=== PATIENT | male | born 1950 | race Caucasian/White ===

== ENCOUNTER 2017-06-07 16:17 | Inpatient (IN) ==
[2017-06-07] MEDS ORDERED: 0.9 % Sodium Chloride 1,000 ML IVC ONE ×2 (16:30→21:04)
--- NOTE | 2017-06-07 16:35 | Emergency Department Note ---
Disposition Clinical Impression: Hyponatremia Fever Qualifiers: Fever type: unspecified Qualified Code(s): R50.9 - Fever, unspecified Disposition: Admitted As Inpatient Condition: Good Referrals: Ben Magaña MD [Primary Care Provider] - Forms: ED Satisfaction Letter, Work/School Release Time of Disposition: 17:57 General Adult HPI - General Chief complaint: ED General Medical Stated complaint: sent from PCP" Time Seen by Provider: 06/07/17 16:20 Source: patient, family Mode of arrival: EMS Limitations: other (MRDD) Nursing Notes Reviewed: Yes Vital Signs Reviewed: Yes - History of Present Illness HPI Narrative: 66-year-old male with MRDD presenting to the emergency department sent from his primary care physician. History is limited due to patient's MRDD. Patient was sent to urgent care last week and was told he had a viral syndrome was treated with nausea medications. Patient has not been getting any better and now had a fever of 102 today and therefore was seen in his primary care physician's office. Upon arrival to the primary care physician's office patient was noted to be weak unsteady on his feet and have a fever 102. Physician was concerned for this and his disorientation and therefore sent to the emergency department. Patient denies any complaints at this time. Patient stable in the room but unable to answer majority of the questions. Patient continues to state he does not want to stay here. [id number] in the room providing history as well. - Related Data Home Medications Medication Instructions Recorded Confirmed Aspirin 06/04/17 06/04/17 Carbamazepine 06/04/17 Folic Acid 06/04/17 Risperidone 06/04/17 Simvastatin 06/04/17 metFORMIN 06/04/17 Previous Rx's Medication Instructions Recorded Ondansetron ODT [Zofran ODT] 4 mg SL Q6HR PRN #10 tab.rapdis 06/04/17 Allergies Allergy/AdvReac Type Severity Reaction Status Date / Time No Known Allergies Allergy Verified 06/04/17 10:58 Limitations: ROS unobtainable due to patients medical condition (seconday to MRDD) Past Medical History - Past Medical History Attestation: Yes The following information was validated with the patient. Medical history: Reports: diabetes, hyperlipidemia - Social History Smoking Status: Never smoker Smokeless Tobacco Status: No Alcohol use: Reports: none Physical Exam - General Limitations: other (MRDD) General appearance: alert, in no apparent distress - Head Head exam: atraumatic, normocephalic - Eye Eye exam: Present: normal appearance. Absent: scleral icterus, conjunctival injection - ENT ENT exam: mucous membranes dry - Neck Neck exam: Present: normal inspection, full ROM - Chest Chest inspection: Present: normal inspection, symmetric chest wall rise. Absent : tenderness - Respiratory Respiratory exam: Present: normal lung sounds bilaterally. Absent: respiratory distress, wheezes - Cardiovascular Cardiovascular exam: Present: regular rate, normal rhythm, normal heart sounds - Abdominal Exam Abdominal exam: Present: soft, Non-Tender. Absent: distention, guarding, rebound - Extremities Exam Extremities exam: Present: normal inspection, full ROM - Neurological Exam Neurological exam: Present: alert - Skin Skin exam: Present: warm, intact Course Course Narrative: 66-year-old male presenting to the emergency department with chief complaint of fever of 102 and disorientation. According to [id number]-[id number] he has been sick for approximately 1 week and has not been getting better. Patient history difficult to obtain due to MRDD. At this time we will perform a sepsis workup to rule out any source of infection. Patient hemodynamically stable in the room at this time in no acute distress. - Reevaluation(s) Reevaluation #1: No obvious source of infection at this time. Patient sodium 127. Decided to admit the patient. Lashawn Phillips excepts the patient. She asks to add a flu swab for the patient. Time: 17:57 Medical Decision Making - Medical Records Medical records reviewed: Yes I reviewed the patient's medical records. - Lab Data Lab results reviewed: Yes I reviewed the patient's lab results. Result diagrams: 06/07/17 17:01 06/07/17 17:01 Lab Results 06/07/17 06/07/17 06/07/17 Range/Units 16:43 17:01 17:01 WBC 7.2 (4.3-11.1) K/mcL RBC 4.03 L (4.19-5.50) M/mcL Hgb 13.9 (12.9-16.9) g/dL Hct 39.2 (37.5-50.1) % MCV 97.3 (83.0-100.0) fL MCH 34.5 H (28.0-33.3) pg MCHC 35.5 (31.6-35.5) g/dL RDW 12.1 (11.5-14.5) % Plt Count 280 (140-400) K/mcL MPV 8.9 L (9.4-12.4) fL Immature Gran % 0.3 (0-4) % Seg Neutrophils % 84.8 % Lymphocytes % 6.4 % Monocytes % 8.3 % Eosinophils % 0.1 % Basophils % 0.1 % Neutrophils # 6.1 (1.6-8.9) K/mcL Lymphocytes # 0.5 L (0.6-4.6) K/mcL Monocytes # 0.6 (0.0-1.3) K/mcL Eosinophils # 0.0 (0.0-0.6) K/mcL Basophils # 0.0 (0.0-0.2) K/mcL Sodium 127 L (136-145) mEq/L Potassium 3.8 (3.5-4.5) mEq/L Chloride 91 L (98-109) mEq/L Carbon Dioxide 24 (19-29) mEq/L BUN 11 (8-26) mg/dL Creatinine 0.87 (0.72-1.25) mg/dL Est GFR ( Amer) > 60 (> 60) Est GFR (Non-Af Amer) > 60 (> 60) BUN/Creatinine Ratio 13 (6-26) Glucose 171 H (70-99) mg/dL Calculated Osmolality 267 L (280-300) Lactic Acid (0.5-2.2) mmol/L Calcium 9.0 (8.6-10.8) mg/dL Phosphorus 2.7 (2.3-4.7) mg/dL Magnesium 1.5 L (1.6-2.6) mg/dL Total Bilirubin 0.6 (0.2-1.2) mg/dL Direct Bilirubin 0.3 (0.0-0.5) mg/dL Indirect Bilirubin 0.3 (0.0-1.2) mg/dL AST 10 (5-34) Units/L ALT 7 (0-55) Units/L Alkaline Phosphatase 83 (38-126) Units/L Troponin I (0-0.03) ng/mL Serum Total Protein 7.1 (6.0-8.3) g/dL Albumin 3.1 L (3.5-5.0) g/dL Globulin 4.0 H (2.4-3.5) g/dL Albumin/Globulin Ratio 0.8 L (1.1-2.2) Urine Color Dark Yellow (Yellow) Urine Clarity Cloudy A (Clear) Urine pH 6.0 (5.0-8.0) pH Units Ur Specific [place] 1.018 (1.010-1.025) Urine Protein Trace (Neg-Trace) mg/dL Urine Glucose (UA) 250 H (Normal) mg/dL Urine Ketones Negative (Negative) mg/dL Urine Blood Negative (Negative) Urine Nitrite Negative (Negative) Urine Bilirubin Small H (Negative) Urine Urobilinogen 4.0 H (Normal) mg/dL Ur Leukocyte Esterase Negative (Negative) Urine Microscopic RBC 0-3 (0-3) per hpf Urine Microscopic WBC 0-3 (0-3) per hpf Ur Squamous Epith Cells Few (None-Few) per lpf Calcium Oxalate Crystal Present Urine Bacteria Few (None-Few) per hpf Hyaline Casts None Seen (None-Few) per lpf Ur Culture Indicated? NO (NO) 06/07/17 06/07/17 Range/Units 17:01 17:01 WBC (4.3-11.1) K/mcL RBC (4.19-5.50) M/mcL Hgb (12.9-16.9) g/dL Hct (37.5-50.1) % MCV (83.0-100.0) fL MCH (28.0-33.3) pg MCHC (31.6-35.5) g/dL RDW (11.5-14.5) % Plt Count (140-400) K/mcL MPV (9.4-12.4) fL Immature Gran % (0-4) % Seg Neutrophils % % Lymphocytes % % Monocytes % % Eosinophils % % Basophils % % Neutrophils # (1.6-8.9) K/mcL Lymphocytes # (0.6-4.6) K/mcL Monocytes # (0.0-1.3) K/mcL Eosinophils # (0.0-0.6) K/mcL Basophils # (0.0-0.2) K/mcL Sodium (136-145) mEq/L Potassium (3.5-4.5) mEq/L Chloride (98-109) mEq/L Carbon Dioxide (19-29) mEq/L BUN (8-26) mg/dL Creatinine (0.72-1.25) mg/dL Est GFR ( Amer) (> 60) Est GFR (Non-Af Amer) (> 60) BUN/Creatinine Ratio (6-26) Glucose (70-99) mg/dL Calculated Osmolality (280-300) Lactic Acid 2.6 H (0.5-2.2) mmol/L Calcium (8.6-10.8) mg/dL Phosphorus (2.3-4.7) mg/dL Magnesium (1.6-2.6) mg/dL Total Bilirubin (0.2-1.2) mg/dL Direct Bilirubin (0.0-0.5) mg/dL Indirect Bilirubin (0.0-1.2) mg/dL AST (5-34) Units/L ALT (0-55) Units/L Alkaline Phosphatase (38-126) Units/L Troponin I 0.01 (0-0.03) ng/mL Serum Total Protein (6.0-8.3) g/dL Albumin (3.5-5.0) g/dL Globulin (2.4-3.5) g/dL Albumin/Globulin Ratio (1.1-2.2) Urine Color (Yellow) Urine Clarity (Clear) Urine pH (5.0-8.0) pH Units Ur Specific [place] (1.010-1.025) Urine Protein (Neg-Trace) mg/dL Urine Glucose (UA) (Normal) mg/dL Urine Ketones (Negative) mg/dL Urine Blood (Negative) Urine Nitrite (Negative) Urine Bilirubin (Negative) Urine Urobilinogen (Normal) mg/dL Ur Leukocyte Esterase (Negative) Urine Microscopic RBC (0-3) per hpf Urine Microscopic WBC (0-3) per hpf Ur Squamous Epith Cells (None-Few) per lpf Calcium Oxalate Crystal Urine Bacteria (None-Few) per hpf Hyaline Casts (None-Few) per lpf Ur Culture Indicated? (NO) - Radiology Data Radiology results reviewed: Yes I reviewed the patient's radiology results. - EKG Data EKG #1 EKG attestation: Yes I reviewed and interpreted this EKG. EKG results narrative: 85 bpm. Sinus rhythm. Left axis deviation. DC interval 157, QRS 102, QTC 390. T-wave inversion noted in V1 and V2. No ST segment elevation noted.
[2017-06-07 16:52] LABS: Bilirubin,Urine Small (Negative); Blood,Urine Negative (Negative); Clarity,Urine Cloudy (Clear); Color,Urine Dark Yellow (Yellow); Glucose,Urine (UA) 250 mg/dL (Normal); Ketones,Urine Negative (Negative); Leukocyte Esterase,Urine Negative (Negative); Nitrite,Urine Negative (Negative); Protein,Urine Trace mg/dL (Neg-Trace); Specific Gravity,Urine 1.018 (1.010-1.025)
[2017-06-07 16:53] LABS: Hyaline Casts,Urine None Seen per lpf (None-Few); RBC,Urine 0-3 per hpf (0-3); WBC,Urine 0-3 per hpf (0-3)
[2017-06-07 17:05] LABS: Squamous Epithelial Cell,Urine Few per lpf (None-Few)
[2017-06-07 17:06] LABS: Bacteria,Urine Few per hpf (None-Few); Calcium Oxalate Crystals,Urine Present
[2017-06-07 17:07] LABS: Basophils % 0.1 %; Eosinophils % 0.1 %; Hematocrit 39.2 % (37.5-50.1); Hemoglobin 13.9 g/dL (12.9-16.9); Immature Granulocytes % 0.3 % (0-4); Lymphocytes # 0.5 K/mcL (0.6-4.6); Lymphocytes % 6.4 %; Mean Corpuscular HGB Conc 35.5 g/dL (31.6-35.5); Mean Corpuscular Hemoglobin 34.5 pg (28.0-33.3); Mean Corpuscular Volume 97.3 fL (83.0-100.0); Mean Platelet Volume 8.9 fL (9.4-12.4); Monocytes # 0.6 K/mcL (0.0-1.3); Monocytes % 8.3 %; Neutrophils # 6.1 K/mcL (1.6-8.9); Platelet Count 280 K/mcL (140-400); Red Blood Count 4.03 M/mcL (4.19-5.50); Red Cell Distribution Width 12.1 % (11.5-14.5); Segmented Neutrophils % 84.8 %
[2017-06-07 17:25] LABS: Alanine Aminotransferase 7 Units/L (0-55); Albumin 3.1 g/dL (3.5-5.0); Albumin/Globulin Ratio 0.8 (1.1-2.2); Alkaline Phosphatase 83 Units/L (38-126); Aspartate Amino Transferase 10 Units/L (5-34); BUN/Creatinine Ratio 13 (6-26); Bilirubin,Direct 0.3 mg/dL (0.0-0.5); Bilirubin,Indirect 0.3 mg/dL (0.0-1.2); Bilirubin,Total 0.6 mg/dL (0.2-1.2); Blood Urea Nitrogen 11 mg/dL (8-26); Carbon Dioxide 24 mEq/L (19-29); Chloride 91 mEq/L (98-109); Glucose 171 mg/dL (70-99); Magnesium 1.5 mg/dL (1.6-2.6); Osmolality,Calculated 267 (280-300); Phosphorous 2.7 mg/dL (2.3-4.7); Potassium 3.8 mEq/L (3.5-4.5); Sodium 127 mEq/L (136-145); Total Protein 7.1 g/dL (6.0-8.3); eGFR For African Americans > 60 (> 60); eGFR For Non-African Americans > 60 (> 60)
--- NOTE | 2017-06-07 17:48 | Emergency Department Note ---
START Narrative - START START: I examined this patient and my medical decision-making was reviewed with the Resident Physician. I agree with the documented findings, disposition and treatment plan as described except to the extent set forth below. 66-year-old male presents to the emergency room with his [id number]-[id number] for reports of a fever and not feeling well 1 week. They noticed a fever today at the doctor's office of 102. When he was in the ER here he did not have a fever and they did not give him any antipyretics. Patient is a poor historian secondary to MR INDER. No focal complaints per the [id number]. She states he is just seems more weak than normal. Workup thus far in the ER shows a low sodium. Slightly elevated lactate. Chest x-ray normal. Urinalysis normal. We will admit for the low sodium of 127. This could be the cause of his weakness. Started with some gentle normal saline fluids. Patient will need to be admitted for observation.
[2017-06-07] MEDS ORDERED: *HR* Dextrose 50 % in Water (Syg) 50 ML SYRINGE IVP PRN (21:14)
[2017-06-07] MEDS ORDERED: Dextrose Gel 15 GM PO PRN ×2 (21:14)
[2017-06-07] MEDS ORDERED: D5% in Water 1,000 ML IVC PRN (21:14)
[2017-06-07] MEDS ORDERED: Naloxone 0.4 MG/ML INJ IVP PRN (21:24)
[2017-06-07] MEDS ORDERED: Acetaminophen 325 MG TABLET PO PRN (21:24)
[2017-06-07] MEDS ORDERED: Ondansetron 4 MG/2 ML VIAL IVP PRN (21:24)
[2017-06-07] MEDS ORDERED: Magnesium Sulfate 2 GM in D5% in Water 100 ML IVPB ONE (21:27)
--- NOTE | 2017-06-07 21:28 | Internal Med History&Physical ---
Date of Encounter: 06/07/17 Time of Encounter: 21:28 Assessment and Plan (1) Sepsis Current visit: Yes Status: Suspected 1 appears to be septic he is hypotensive with elevated temp hypoxic with sats 90 % on RA and elevated lactate. Source unclear suspect possible possible aspiration pneumonina, We will also check influenza swab 2 continue to monitor lactate 3 blood culture obtained 4 has received 1 l bolus in Ed will give one more if continue to be hypotensive we will give albumin 5 aspiration precautions- bedside swallow evaluation 6 initiate zosyn Qualifiers: Sepsis type: sepsis due to unspecified organism Qualified Code(s): A41.9 - Sepsis, unspecified organism (2) Hyponatremia Current visit: Yes Status: Acute 1 sodium was 127 presently he is neurologically at baseline no seizure activity noted. Serum osmolarity is 267 we will check urine Na urine osmo for source of hyponatremia . He was given 1 L of 0.9 normal saline in the ER he is presently hypotensive we will give liter of 0.9 normal saline. Recheck sodium every 6 hours, will not correct sodium no more than 8 meq per day 2 seizure precautions 3 monitor intake and output daily weights (3) Diabetes Current visit: No Status: Chronic accu check AC/HS SSI insulin Qualifiers: Diabetes mellitus type: type 2 Diabetes mellitus complication status: without complication Diabetes mellitus senior care insulin use: without ssds mk 2 advanced operator use Qualified Code(s): E11.9 - Type 2 diabetes mellitus without complications (4) DVT prophylaxis Current visit: Yes Status: Acute lovenox (5) Hx of seizure disorder Current visit: Yes Status: Acute family states that patient has not had a seizure in many years, recently had tegretol decreased. will continue with home medication continue seizure precautions Internal Medicine - H&P: HPI Chief complaint: fever Admitted From: Emergency Dept Plans for Post Hospital Care: Home History of present illness: Mr. Pitts is a 66 year old male past uncle history of MRDD hyperlipidemia diabetes. Information obtained from medical records as well as family who is at bedside due to patient's cognitive state. According to the family the patient has been experiencing increasing lethargy and nausea one episode of emesis, headache and poor oral intake for about 5 days. Sunday they did take the patient to urgent care he was treated for viral illness and was advised to follow-up with PCP if symptoms continued. Today patient was secondary to BCP due to continuation of symptoms as well as a fever of 102. Advised to go to the ER for evaluation. In the ER lab work did reveal hyponatremia with a sodium of 127 low magnesium at 1.5 lactate was 2.6 he was hypotensive and was given a fluid challenge. Urinalysis was negative for any UTI chest x-ray No convincing evidence of edema or pneumonia. Mild interstitial scarring or atelectasis. Blood cultures were obtained patient has been admitted for further work up evaluation. Aniket patient is alert he is at his mental baseline. Mucous membranes do appear to be tachycardia his lung sounds are clear heart sounds are regular S1-S2 abdomen soft and nontender to palpation no pedal edema. Family member states medications have all been a same except they did decrease his Tegretol down to 300 as well as placed him on folic acid. He continued to be somewhat hypotensive. I reviewed this case with Dr. Stoner who agrees with plan. Past Med Surg Social Fam HX - Past Medical History Medical history: diabetes, hyperlipidemia Psychiatric history: anxiety - Social History Smoking Status: Never smoker Smokeless Tobacco Status: No Alcohol use: none Drug use: none - Family History Mother Living Status: Hx Family Cardiac Disorders: Yes Internal Medicine - H&P: Meds Aspirin Enteric Coated [Aspirin EC] 81 mg PO DAILY 06/04/17 [History] CarBAMazepine [Carbamazepine ER] 300 mg PO DAILY 06/04/17 [History] Folic Acid 1 mg PO DAILY 06/04/17 [History] Simvastatin [Zocor] 10 mg PO HS 06/04/17 [History] metFORMIN [Glucophage] 500 mg PO BIDWM 06/04/17 [History] risperiDONE [Risperdal] 2 mg PO HS 06/04/17 [History] 3 Allergy/AdvReac Type Severity Reaction Status Date / Time No Known Allergies Allergy Verified 06/04/17 10:58 ROS unobtainable: due to mental status All Systems PM: A 10-system review of systems was performed and is negative for pertinent findings except as documented above in the HPI. - Constitutional Vitals: Temp Pulse Resp BP Pulse Ox 100.5 F H 81 14 95/63 92 06/07/17 20:41 06/07/17 20:41 06/07/17 20:41 06/07/17 20:41 06/07/17 20:41 General appearance: Present: A&O X 1, pleasant - Head Head exam: Present: atraumatic, normocephalic - Eye Eye exam: Present: PERRL, conjuntiva pink, sclera anicteric Pupils: Present: PERRL - Neck Neck exam general surgery: Present: supple, trachea midline. Absent: lymphadenopathy - Respiratory Respiratory exam: Present: CTAB. Absent: accessory muscle use, rales, rhonchi, wheezes - Cardiovascular Cardiovascular exam: Present: RRR, +S1, +S2. Absent: diastolic murmur, gallop, rubs, systolic murmur - GI/Abdominal GI/Abdominal exam: Present: normal bowel sounds, soft, no peritoneal signs. Absent: distended, tenderness - Extremities Exam Extremities exam: Present: warm, radial pulses palpable and symmetrical. Absent : calf tenderness, cyanotic, pedal edema - Neurological Exam Neurological exam: Present: CN II-XII intact, oriented X3, no focal deficits. Absent: pronater drift, facial droop, speech deficit - Skin Skin exam: Present: dry, intact Internal Med - H&P Results - Labs CBC & Chem 7: 06/07/17 17:01 06/07/17 17:01 - Diagnostic Studies Other Images Additional comments: Chest X-Ray 06/07/17 16:44 IMPRESSION: No convincing evidence of edema or pneumonia. Mild interstitial scarring or atelectasis. D/ / 06/07/2017 17:31:40 Johnny Pena MD / [facility] Interpreting Provider: Johnny Pena MD
--- NOTE | 2017-06-07 21:51 | Event Note ---
Date of Encounter: 06/07/17 Time of Encounter: 21:48 Patient and examined withpractitioner. Agree with this assessment and plan. Suspects sepsis source unclear possibly pneumonia. He is hypoxic saturating 90 to 92% on room air. We will start the patient on Zosyn. Lactic acids 2.5. Blood pressure is borderline students systolic running in the 90s. He had received 1 L bolus in the emergency room will give one more liter of normal saline over an hour. Continue maintenance fluid after checking sodium level as he is hyponatremic. Will plan to correct the sodium no faster than .5 mEq per hour or 6 to 8 mEq per day. We will get urine sodium and osmolarity to check cause for hyponatremia. Inpatient admission.
[2017-06-07] MEDS ORDERED: Levofloxacin 750 MG/150 ML 750 MG/150 ML BAG IVPB SCH (22:00)
[2017-06-08] MEDS: Piperacillin/Tazobactam 3.375 GM in D5% in Water (Mini-Bag+) 100 ML IVPB SCH ×2 (00:04→07:53)
[2017-06-08 05:12] LABS: Basophils % 0.5 %; Eosinophils # 0.1 K/mcL (0.0-0.6); Eosinophils % 1.1 %; Hematocrit 32.2 % (37.5-50.1); Immature Granulocytes % 0.2 % (0-4); Lymphocytes # 0.9 K/mcL (0.6-4.6); Lymphocytes % 16.4 %; Mean Corpuscular Volume 97.3 fL (83.0-100.0); Mean Platelet Volume 8.8 fL (9.4-12.4); Monocytes # 0.6 K/mcL (0.0-1.3); Monocytes % 10.3 %; Platelet Count 217 K/mcL (140-400); Red Blood Count 3.31 M/mcL (4.19-5.50); Red Cell Distribution Width 12.2 % (11.5-14.5); Segmented Neutrophils % 71.5 %
[2017-06-08 05:15] LABS: Hemoglobin 11.6 g/dL (12.9-16.9)
[2017-06-08 05:25] LABS: BUN/Creatinine Ratio 8 (6-26); Blood Urea Nitrogen 6 mg/dL (8-26); Calcium 8.5 mg/dL (8.6-10.8); Carbon Dioxide 25 mEq/L (19-29); Chloride 96 mEq/L (98-109); Glucose 109 mg/dL (70-99); Magnesium 1.9 mg/dL (1.6-2.6); Osmolality,Calculated 264 (280-300); Potassium 3.8 mEq/L (3.5-4.5); Sodium 128 mEq/L (136-145); eGFR For African Americans > 60 (> 60); eGFR For Non-African Americans > 60 (> 60)
[2017-06-08] MEDS: *HR* Enoxaparin 40 MG/0.4 ML SYRINGE SQ SCH (06:03)
[2017-06-08] MEDS: Insulin LISPRO 300 UNITS/3 ML VIAL SQ SCH ×4 (07:45→21:07)
[2017-06-08] MEDS: Folic Acid 1 MG TABLET PO SCH (07:53)
[2017-06-08] MEDS: Aspirin Enteric Coated 81 MG Tablet PO SCH (07:53)
[2017-06-08] MEDS ORDERED: CarBAMazepine 100 MG TABLET PO SCH (09:00)
[2017-06-08] MEDS: 0.9 % Sodium Chloride 1,000 ML IVC SCH (12:20)
--- NOTE | 2017-06-08 17:17 | Internal Med Progress Note ---
Date of Encounter: 06/08/17 Time of Encounter: 10:00 - Assessment and plan (1) Hyponatremia Current Visit: Yes Status: Acute Assessment and plan: -Suspect patient hypovolemic hypotonic hyponatremia as patient has low serum osmolarity and family reports the patient has not been taking lots of fluids -Suspect that hyponatremia also secondary to Tegretol. -Will continue gentle IV normal saline to actually increase serum sodium. -Continue to monitor serum sodium levels. (2) Fever Current Visit: Yes Status: Resolved Assessment and plan: Patient has been afebrile and without leukocytosis. -IV antibiotics have been discontinued. Qualifiers: Fever type: unspecified Qualified Code(s): R50.9 - Fever, unspecified (3) Diabetes Current Visit: No Status: Chronic Assessment and plan: Continue home medications Qualifiers: Diabetes mellitus type: type 2 Diabetes mellitus complication status: without complication Diabetes mellitus senior care insulin use: without truck terminal manager use Qualified Code(s): E11.9 - Type 2 diabetes mellitus without complications (4) Hx of seizure disorder Current Visit: Yes Status: Acute Assessment and plan: Home medications. - Subjective Interval history: Jipynm-av-hys, who was present at bedside reports that patient looks "100% better" and is currently at baseline - Constitutional Vitals: Temp Pulse Resp BP Pulse Ox 98.3 F 70 18 100/59 96 06/08/17 10:25 06/08/17 10:25 06/08/17 10:25 06/08/17 10:25 06/08/17 10:25 General appearance: Present: A&O X 1, pleasant - Respiratory Respiratory exam: Present: CTAB, rhonchi. Absent: rales, wheezes - Cardiovascular Cardiovascular exam: Present: RRR, +S1, +S2. Absent: diastolic murmur, gallop, rubs, systolic murmur - GI/Abdominal GI/Abdominal exam: Present: normal bowel sounds, soft, no peritoneal signs. Absent: distended, tenderness Internal Medicine: Result - Labs CBC & Chem 7: 06/08/17 04:56 06/08/17 16:47 Labs: Short CBC 06/08/17 Range/Units 04:56 WBC 5.5 (4.3-11.1) K/mcL Hgb 11.6 L D (12.9-16.9) g/dL Hct 32.2 L (37.5-50.1) % Plt Count 217 (140-400) K/mcL Neutrophils # 4.0 (1.6-8.9) K/mcL BMP 06/07/17 06/08/17 06/08/17 22:44 04:56 10:56 Sodium 128 L 128 L 126 L Potassium 3.8 Chloride 96 L Carbon Dioxide 25 BUN 6 L Creatinine 0.71 L Glucose 109 H Calcium 8.5 L Consult Discharge Plan - Plan Referrals: Ben Magaña MD [Primary Care Provider] -
--- NOTE | 2017-06-08 18:08 | Electrocardiograph Report ---
[place] [id number] Test Date: 2017-06-07 Pat Name: Tan Pitts Department: 102 Room: 3A33 Gender: M Hand Lacer: Ekp : 1950 Requested By: Sameera Worley Order Number: [id number] Reading MD: Jessica Feliz Measurements Intervals [place] Rate: 85 P: 63 NH: 157 QRS: -41 QRSD: 102 T: 71 QT: 348 QTc: 390 Interpretive Statements SINUS RHYTHM MARKED LEFT AXIS DEVIATION [QRS AXIS < -30] NONSPECIFIC ST & T-WAVE ABNORMALITY Electronically Signed On 06-08-2017 18:07:04 EDT by Jessica Feliz
[2017-06-08] MEDS: risperiDONE 1 MG TABLET PO SCH (21:13)
[2017-06-09] MEDS: 0.9 % Sodium Chloride 1,000 ML IVC SCH ×4 (03:18→21:04)
[2017-06-09] MEDS: *HR* Enoxaparin 40 MG/0.4 ML SYRINGE SQ SCH (05:21)
[2017-06-09] MEDS: Insulin LISPRO 300 UNITS/3 ML VIAL SQ SCH ×4 (07:45→20:49)
[2017-06-09 09:09] LABS: Basophils % 0.3 %; Eosinophils # 0.1 K/mcL (0.0-0.6); Eosinophils % 1.3 %; Hematocrit 33.6 % (37.5-50.1); Hemoglobin 11.7 g/dL (12.9-16.9); Immature Granulocytes % 0.3 % (0-4); Lymphocytes # 1.3 K/mcL (0.6-4.6); Lymphocytes % 20.5 %; Mean Corpuscular HGB Conc 34.8 g/dL (31.6-35.5); Mean Corpuscular Hemoglobin 33.8 pg (28.0-33.3); Mean Corpuscular Volume 97.1 fL (83.0-100.0); Mean Platelet Volume 8.9 fL (9.4-12.4); Monocytes # 0.5 K/mcL (0.0-1.3); Monocytes % 8.6 %; Neutrophils # 4.2 K/mcL (1.6-8.9); Platelet Count 253 K/mcL (140-400); Red Blood Count 3.46 M/mcL (4.19-5.50); Red Cell Distribution Width 12.2 % (11.5-14.5)
[2017-06-09 09:23] LABS: BUN/Creatinine Ratio 11 (6-26); Blood Urea Nitrogen 7 mg/dL (8-26); Calcium 8.5 mg/dL (8.6-10.8); Carbon Dioxide 25 mEq/L (19-29); Chloride 97 mEq/L (98-109); Glucose 84 mg/dL (70-99); Osmolality,Calculated 265 (280-300); Potassium 3.9 mEq/L (3.5-4.5); Sodium 129 mEq/L (136-145); eGFR For African Americans > 60 (> 60); eGFR For Non-African Americans > 60 (> 60)
[2017-06-09] MEDS: CarBAMazepine XR (12 hr) 100 MG TAB PO SCH ×2 (09:31)
[2017-06-09] MEDS: Folic Acid 1 MG TABLET PO SCH (09:31)
[2017-06-09] MEDS: Aspirin Enteric Coated 81 MG Tablet PO SCH (09:31)
--- NOTE | 2017-06-09 14:36 | Internal Med Progress Note ---
Date of Encounter: 06/09/17 Time of Encounter: 11:00 - Assessment and plan (1) Hyponatremia Current Visit: Yes Status: Acute Assessment and plan: -Suspect patient hypovolemic hypotonic hyponatremia as patient has low serum osmolarity and family reports the patient has not been taking lots of fluids -Suspect that hyponatremia also secondary to Tegretol. -Patient's sodium levels have only improve to 129 from 127 on admission 2 days ago. -Will continue gentle IV normal saline to gradually increase serum sodium. -Continue to monitor serum sodium levels. (2) Fever Current Visit: Yes Status: Resolved Assessment and plan: Patient has been afebrile and without leukocytosis. -Urinalysis was negative and chest strength showed no acute findings. -IV antibiotics have been discontinued. Qualifiers: Fever type: unspecified Qualified Code(s): R50.9 - Fever, unspecified (3) Diabetes Current Visit: No Status: Chronic Assessment and plan: -Blood glucose levels are controlled. -Continue home medications Qualifiers: Diabetes mellitus type: type 2 Diabetes mellitus complication status: without complication Diabetes mellitus [facility] insulin use: without [facility] use Qualified Code(s): E11.9 - Type 2 diabetes mellitus without complications (4) Hx of seizure disorder Current Visit: Yes Status: Acute Assessment and plan: -Patient has not had any seizures. -Continue home medications. - Subjective Interval history: Tevyvi-zv-foo, who was present at bedside reports that patient improving but still with poor appetite as he is not eating much. Patient has also not been getting out of bed and is not as active as usual. - Constitutional Vitals: Temp Pulse Resp BP Pulse Ox 99.8 F H 72 17 95/65 96 06/09/17 08:00 06/09/17 08:00 06/09/17 08:00 06/09/17 08:00 06/09/17 09:20 General appearance: Present: A&O X 1, pleasant - Respiratory Respiratory exam: Present: CTAB. Absent: accessory muscle use, rales, rhonchi, wheezes - Cardiovascular Cardiovascular exam: Present: RRR, +S1, +S2. Absent: diastolic murmur, gallop, rubs, systolic murmur Internal Medicine: Result - Labs CBC & Chem 7: 06/09/17 08:21 06/09/17 08:21 Labs: Short CBC 06/09/17 Range/Units 08:21 WBC 6.1 (4.3-11.1) K/mcL Hgb 11.7 L (12.9-16.9) g/dL Hct 33.6 L (37.5-50.1) % Plt Count 253 (140-400) K/mcL Neutrophils # 4.2 (1.6-8.9) K/mcL BMP 06/08/17 06/08/17 06/09/17 16:47 22:46 08:21 Sodium 129 L 128 L 129 L Potassium 3.9 Chloride 97 L Carbon Dioxide 25 BUN 7 L Creatinine 0.66 L Glucose 84 Calcium 8.5 L Consult Discharge Plan - Plan Referrals: Ben Magaña MD [Primary Care Provider] -
[2017-06-09 15:23] LABS: Basophils % 0.2 %; Eosinophils # 0.1 K/mcL (0.0-0.6); Hematocrit 32.9 % (37.5-50.1); Hemoglobin 11.7 g/dL (12.9-16.9); Immature Granulocytes % 0.2 % (0-4); Lymphocytes # 0.8 K/mcL (0.6-4.6); Lymphocytes % 16.3 %; Mean Corpuscular HGB Conc 35.6 g/dL (31.6-35.5); Mean Corpuscular Hemoglobin 34.7 pg (28.0-33.3); Mean Corpuscular Volume 97.6 fL (83.0-100.0); Mean Platelet Volume 9.1 fL (9.4-12.4); Monocytes # 0.5 K/mcL (0.0-1.3); Monocytes % 9.1 %; Neutrophils # 3.7 K/mcL (1.6-8.9); Platelet Count 251 K/mcL (140-400); Red Blood Count 3.37 M/mcL (4.19-5.50); Red Cell Distribution Width 12.2 % (11.5-14.5); Segmented Neutrophils % 73.2 %
[2017-06-09] MEDS: Piperacillin/Tazobactam 3.375 GM in D5% in Water (Mini-Bag+) 100 ML IVPB SCH (19:44)
[2017-06-09] MEDS: risperiDONE 1 MG TABLET PO SCH (20:54)
[2017-06-09] MEDS ORDERED: Acetaminophen 325 MG TABLET PO PRN (22:10)
[2017-06-10] MEDS: 0.9 % Sodium Chloride 1,000 ML IVC SCH (03:59)
[2017-06-10] MEDS: *HR* Enoxaparin 40 MG/0.4 ML SYRINGE SQ SCH (06:04)
[2017-06-10 06:10] LABS: BUN/Creatinine Ratio 15 (6-26); Blood Urea Nitrogen 9 mg/dL (8-26); Calcium 8.3 mg/dL (8.6-10.8); Carbon Dioxide 25 mEq/L (19-29); Chloride 102 mEq/L (98-109); Glucose 87 mg/dL (70-99); Osmolality,Calculated 274 (280-300); Potassium 3.7 mEq/L (3.5-4.5); Sodium 133 mEq/L (136-145); eGFR For African Americans > 60 (> 60); eGFR For Non-African Americans > 60 (> 60)
[2017-06-10 07:40] VITALS: BP 100/60
[2017-06-10] MEDS: Insulin LISPRO 300 UNITS/3 ML VIAL SQ SCH ×2 (08:10→12:08)
[2017-06-10 08:26] LABS: Basophils % 0.2 %; Eosinophils # 0.1 K/mcL (0.0-0.6); Hematocrit 32.7 % (37.5-50.1); Hemoglobin 11.3 g/dL (12.9-16.9); Immature Granulocytes % 0.2 % (0-4); Lymphocytes # 0.8 K/mcL (0.6-4.6); Lymphocytes % 18.8 %; Mean Corpuscular HGB Conc 34.6 g/dL (31.6-35.5); Mean Corpuscular Hemoglobin 34.3 pg (28.0-33.3); Mean Corpuscular Volume 99.4 fL (83.0-100.0); Mean Platelet Volume 9.3 fL (9.4-12.4); Monocytes # 0.3 K/mcL (0.0-1.3); Monocytes % 7.8 %; Neutrophils # 3.1 K/mcL (1.6-8.9); Platelet Count 278 K/mcL (140-400); Red Blood Count 3.29 M/mcL (4.19-5.50); Red Cell Distribution Width 12.4 % (11.5-14.5)
[2017-06-10] MEDS: Folic Acid 1 MG TABLET PO SCH (09:49)
[2017-06-10] MEDS: CarBAMazepine XR (12 hr) 100 MG TAB PO SCH ×2 (09:49)
[2017-06-10] MEDS: Aspirin Enteric Coated 81 MG Tablet PO SCH (09:49)
[2017-06-10] MEDS ORDERED: FLUARIX QUAD 2017-18 36MOS UP/PF 0.5 ML SYRINGE IM ONE (14:48)
--- NOTE | 2017-06-10 15:41 | Discharge Summary ---
Date of Encounter: 06/10/17 Time of Encounter: 12:00 - Discharge Diagnosis (1) Hyponatremia Priority: Primary Status: Acute (2) Fever Priority: Primary Status: Resolved Qualifiers: Fever type: unspecified Qualified Code(s): R50.9 - Fever, unspecified (3) Diabetes Priority: Secondary Status: Chronic Qualifiers: Diabetes mellitus type: type 2 Diabetes mellitus complication status: without complication Diabetes mellitus half-way insulin use: without half-way use Qualified Code(s): E11.9 - Type 2 diabetes mellitus without complications (4) Hx of seizure disorder Priority: Secondary Status: Acute - Discharge Medications Home Medications: Aspirin Enteric Coated [Aspirin EC] 81 mg PO DAILY 06/04/17 [History] CarBAMazepine [Carbamazepine ER] 300 mg PO DAILY 06/04/17 [History] Folic Acid 1 mg PO DAILY 06/04/17 [History] Simvastatin [Zocor] 10 mg PO HS 06/04/17 [History] metFORMIN [Glucophage] 500 mg PO BIDWM 06/04/17 [History] risperiDONE [Risperdal] 2 mg PO HS 06/04/17 [History] Allergies/Adverse Reactions: 3 Allergy/AdvReac Type Severity Reaction Status Date / Time No Known Allergies Allergy Verified 06/04/17 10:58 Date of admission: 06/07/17 21:24 Primary care physician: Ben Magaña MD - Patient Status Disposition: Home, Self-Care Condition: Good - Discharge Instructions Instructions: Hyponatremia (DC) Follow Up With: Ben Magaña MD [Primary Care Provider] - Hospital course: Patient is a 66 year old male with past medical history significant for MRDD, hyperlipidemia and diabetes, who presented to the ER on 06/07/17 due to decreased energy and by mouth intake. According to the family, the patient has been experiencing increasing lethargy and poor oral intake for about 5 days. They took the patient to urgent care and he was diagnosed and treated for a viral illness. Patient had a follow-up with his primary care provider who recommended that patient be seen in the ER due to fevers and persistent symptoms. In the ER, lab work did reveal hyponatremia and that he was hypotensive: he was given a fluid challenge. Urinalysis was negative for any UTI and chest x-ray no convincing evidence of edema or pneumonia. Patient was admitted to the medical floor for dehydration with hyponatremia. During patients hospital stay, his blood cultures were negative as was chest x- ray and urinalysis as above; he is also afebrile. Therefore IV antibiotics were discontinued. Patients hyponatremia was gradually corrected with normal saline IV fluids and patients energy level, alertness and appetite all improved with hydration. Suspect patients hypovolemic hypotonic hyponatremia due dehydration as patient has low serum osmolarity and family reports the patient has not been taking lots of fluids. In addition, also suspect that hyponatremia is secondary to Tegretol for his seizures. Per family, patient is back to baseline and will be discharged home to follow- up with primary care provider monitor sodium levels. - Time Spent with Patient Total time spent providing and/or coordinating discharge services: Less than 30 minutes - Constitutional Vitals: Temp Pulse Resp BP Pulse Ox 98.8 F 68 16 100/60 95 06/10/17 07:32 06/10/17 07:32 06/10/17 07:32 06/10/17 07:32 06/10/17 09:46 General appearance: Present: A&O X 1, pleasant - Respiratory Respiratory exam: Present: CTAB. Absent: accessory muscle use, rales, rhonchi, wheezes - Cardiovascular Cardiovascular exam: Present: RRR, +S1, +S2. Absent: diastolic murmur, gallop, rubs, systolic murmur
== END 2017-06-10 17:57 | disposition home or self-care (01) | DRG 641 ==
LOC: 3ANU 16:17 → EMEROO 16:17 → 3ANU 20:16
PROVIDERS: ADMIT Nurse Practitioner Acute Care; ATTEND Hospitalist

== ENCOUNTER 2017-12-25 16:40 | Observation (INO) ==
--- NOTE | 2017-12-25 19:50 | Emergency Department Note ---
Disposition Clinical Impression: Proctitis, Pancreatic mass Hemorrhoid Qualifiers: Hemorrhoid type: unspecified Qualified Code(s): K64.9 - Unspecified hemorrhoids Disposition: Admitted As Inpatient Condition: Good Referrals: Ben Magaña MD [Primary Care Provider] - Forms: ED Satisfaction Letter, Work/School Release Time of Disposition: 00:38 General Adult HPI - General Chief complaint: ED General Medical Stated complaint: large knot R side growing Time Seen by Provider: 12/25/17 19:50 Source: patient, family Mode of arrival: ambulatory Limitations: no limitations Nursing Notes Reviewed: Yes Vital Signs Reviewed: Yes - History of Present Illness HPI Narrative: Patient is a 67-year-old male with past medical history of cognitive delay, history of hyponatremia. He presents today accompanied by a family member who is concern for the patient having rectal itching and also complaints of a new right groin mass. The patient himself is somewhat slow at answering questions from his baseline cognitive delay, however, the family member that is present states that this is near his baseline. She says over the past few days, the patient has been "picking "at his rectal area. The patient himself denies any pain with defecation, any change in bowel movements, any melena or hematochezia. Denies any chest pain, shortness breath, nausea, vomiting, abdominal pain. The family member states that the patient is currently without symptoms a few times a day but the patient himself denies any loose stools or diarrhea. Patient also denies any pain in his groin area but does note a possible hernia in the right inguinal region. Family members also concerned of possible hyponatremia. She says that he has been somewhat off-balance recently which is new for him. Otherwise, she denies any other changes from his usual baseline. Pain Scale: 5 - Related Data Home Medications Medication Instructions Recorded Confirmed Aspirin Enteric Coated [Aspirin EC] 81 mg PO DAILY 06/04/17 06/07/17 CarBAMazepine [Carbamazepine ER] 300 mg PO DAILY 06/04/17 06/07/17 Folic Acid 1 mg PO DAILY 06/04/17 06/07/17 Simvastatin [Zocor] 10 mg PO HS 06/04/17 06/07/17 metFORMIN [Glucophage] 500 mg PO BIDWM 06/04/17 06/07/17 risperiDONE [Risperdal] 2 mg PO HS 06/04/17 06/07/17 Allergies Allergy/AdvReac Type Severity Reaction Status Date / Time No Known Allergies Allergy Verified 06/04/17 10:58 All systems ED: reviewed and negative except as stated. Constitutional: Denies: fever Cardiovascular: Denies: chest pain Respiratory: Denies: cough, dyspnea, wheezes Gastrointestinal: Denies: abdominal pain, nausea, vomiting, diarrhea Genitourinary: Denies: urgency, dysuria Integumentary: Denies: rash Neurological: Denies: headache, weakness, numbness, paresthesias Past Medical History - Past Medical History Attestation: Yes The following information was validated with the patient. Source: patient, obtained from family Medical history: Reports: other Psychiatric history: Reports: anxiety - Social History Smoking Status: Never smoker Smokeless Tobacco Status: No Alcohol use: Reports: none Drug use: Reports: none Physical Exam - General Limitations: other (cognitive delay (chronic)) General appearance: alert, in no apparent distress - Head Head exam: atraumatic, normocephalic, normal inspection - Eye Eye exam: Present: normal appearance, PERRL, EOMI - ENT ENT exam: normal exam, normal oropharynx, mucous membranes moist - Neck Neck exam: Present: normal inspection, full ROM, trachea midline - Chest Chest inspection: Present: normal inspection, symmetric chest wall rise - Respiratory Respiratory exam: Present: normal lung sounds bilaterally - Cardiovascular Cardiovascular exam: Present: regular rate, normal rhythm, normal heart sounds - Abdominal Exam Abdominal exam: Present: soft, Non-Tender. Absent: tenderness, distention, guarding, rebound, rigidity - Extremities Exam Extremities exam: Present: normal inspection, full ROM. Absent: tenderness, pedal edema - Neurological Exam Neurological exam: Present: alert, oriented X3, CN II-XII intact. Absent: motor sensory deficit - Psychiatric Psychiatric exam: Present: normal affect, normal mood - Skin Skin exam: Present: warm, dry, intact, normal color Course Course Narrative: Systolic blood pressure 98. Patient is currently asymptomatic, with no lightheadedness, no dizziness. We will continue to monitor. Otherwise, the rest of the vitals within normal limits. Physical exam shows heart regular rate and rhythm, lungs clear to auscultation, abdomen soft and nontender. No focal neurologic deficits. Patient is currently on hold, awaiting placement in a closed room so that we can do a rectal and exam for further evaluation of rectal itching and possible inguinal hernia. In the meantime, CBC and BMP obtained to check blood levels and also sodium levels due to history of hyponatremia. We will also obtain CT of the head due to complaint of mild disequilibrium. Also obtain CT abdomen and pelvis to assess for any hernia or obstruction especially since patient has poor historian and is unable to give a lot of history or review of system answers. 21:02 rectal exam showed 2 small hemorrhoids and 1 medium-sized hemorrhoid, no active bleeding, no erythema, no other lesions. Normal rectal tone. Occult stool was negative. exam showed normal penis and normal scrotum without erythema, edema, any appreciable hernias. No inguinal hernias present on exam. Discussed with family member that hemorrhoids themselves could be cause of patient's rectal itching, will discuss giving patient proctofoam for hemorrhoid pain/itching relief. 00:34 CT shows: IMPRESSION: 1. Rectal mural thickening. Correlate with clinical evidence of proctitis. 2. Heterogeneity with possible enlargement involving the pancreatic head. Although this could represent pancreatitis, pancreatic neoplasm is also considered. Correlate with laboratory evidence of pancreatitis. Consider further evaluation with a dedicated pancreatic MRI. 3. Small bilateral pleural effusions with adjacent airspace disease, atelectasis versus pneumonia versus edema. 4. 5 mm nodule within the right lower lung. Follow-up recommendations are below. 5. Horseshoe kidney incidentally noted. No hydronephrosis or renal calculi are found. 6. Limited without intravenous contrast. In addition, the patient's arms were at his side while scanning, generating streak artifact. LFTs and lipase within normal limits. Patient has proctitis, will start the patient on Proctosol. We will also admit the patient for sedated MRI tomorrow for further assessment of pancreatic neoplasm, possible pancreatic cancer. This was discussed with the family and they are agreeable with this plan. Abdomen/Pelvis CT 12/25/17 19:55 IMPRESSION: 1. Rectal mural thickening. Correlate with clinical evidence of proctitis. 2. Heterogeneity with possible enlargement involving the pancreatic head. Although this could represent pancreatitis, pancreatic neoplasm is also considered. Correlate with laboratory evidence of pancreatitis. Consider further evaluation with a dedicated pancreatic MRI. 3. Small bilateral pleural effusions with adjacent airspace disease, atelectasis versus pneumonia versus edema. 4. 5 mm nodule within the right lower lung. Follow-up recommendations are below. 5. Horseshoe kidney incidentally noted. No hydronephrosis or renal calculi are found. 6. Limited without intravenous contrast. In addition, the patient's arms were at his side while scanning, generating streak artifact. RECOMMENDATIONS: Fleischner Society guidelines for follow-up and management of incidentally detected pulmonary nodules: Single Solid Nodule: Nodule size less than 6 mm In a low-risk patient, no routine follow-up. In a high-risk patient, optional CT at 12 months. - Low risk patients include individuals with minimal or absent history of smoking and other known risk factors. - High risk patients include individuals with a history or smoking or known risk factors. Radiology 2017 http://pubs.rsna.org/doi/full/10.1148/radiol.2208074090 D/ / Pardeep Miner MD / Pardeep Miner MD Interpreting Provider: Pardeep Miner MD Head CT 12/25/17 19:58 IMPRESSION: 1. No acute intracranial abnormality. 2. Diffuse parenchymal volume loss with moderate chronic white matter microvascular ischemic changes. D/ / Gurinder Lee / Gurinder Lee Interpreting Provider: Gurinder Lee Vital Signs Temperature 98.2 F 12/25/17 17:11 Pulse Rate 97 12/25/17 17:11 Respiratory Rate 18 12/25/17 17:11 Blood Pressure 98/59 12/25/17 17:11 O2 Sat by Pulse Oximetry 98 12/25/17 17:11 Temperature 98.2 F 12/25/17 17:11 Pulse Rate 97 12/25/17 17:11 Respiratory Rate 18 12/25/17 17:11 Blood Pressure 98/59 12/25/17 17:11 O2 Sat by Pulse Oximetry 98 12/25/17 17:11 Oxygen Delivery Oxygen Delivery Room Air Medical Decision Making - MDM Narrative Medical decision making narrative: Systolic blood pressure 98. Patient is currently asymptomatic, with no lightheadedness, no dizziness. We will continue to monitor. Otherwise, the rest of the vitals within normal limits. Physical exam shows heart regular rate and rhythm, lungs clear to auscultation, abdomen soft and nontender. No focal neurologic deficits. Patient is currently on hold, awaiting placement in a closed room so that we can do a rectal and exam for further evaluation of rectal itching and possible inguinal hernia. In the meantime, CBC and BMP obtained to check blood levels and also sodium levels due to history of hyponatremia. We will also obtain CT of the head due to complaint of mild disequilibrium. Also obtain CT abdomen and pelvis to assess for any hernia or obstruction especially since patient has poor historian and is unable to give a lot of history or review of system answers. 21:02 rectal exam showed 2 small hemorrhoids and 1 medium-sized hemorrhoid, no active bleeding, no erythema, no other lesions. Normal rectal tone. Occult stool was negative. exam showed normal penis and normal scrotum without erythema, edema, any appreciable hernias. No inguinal hernias present on exam. Discussed with family member that hemorrhoids themselves could be cause of patient's rectal itching, will discuss giving patient proctofoam for hemorrhoid pain/itching relief. 00:34 CT shows: IMPRESSION: 1. Rectal mural thickening. Correlate with clinical evidence of proctitis. 2. Heterogeneity with possible enlargement involving the pancreatic head. Although this could represent pancreatitis, pancreatic neoplasm is also considered. Correlate with laboratory evidence of pancreatitis. Consider further evaluation with a dedicated pancreatic MRI. 3. Small bilateral pleural effusions with adjacent airspace disease, atelectasis versus pneumonia versus edema. 4. 5 mm nodule within the right lower lung. Follow-up recommendations are below. 5. Horseshoe kidney incidentally noted. No hydronephrosis or renal calculi are found. 6. Limited without intravenous contrast. In addition, the patient's arms were at his side while scanning, generating streak artifact. LFTs and lipase within normal limits. Patient has proctitis, will start the patient on Proctosol. We will also admit the patient for sedated MRI tomorrow for further assessment of pancreatic neoplasm, possible pancreatic cancer. This was discussed with the family and they are agreeable with this plan. Anesthesia consul has been placed by Dr. Perez along with surgical consult. - Medical Records Medical records reviewed: Yes I reviewed the patient's medical records. - Lab Data Lab results reviewed: Yes I reviewed the patient's lab results. Result diagrams: 12/25/17 20:03 12/25/17 20:03 Lab Results 12/25/17 12/25/17 12/25/17 Range/Units 20:03 20:03 22:54 WBC 6.5 (4.3-11.1) K/mcL RBC 3.50 L (4.19-5.50) M/mcL Hgb 12.0 L (12.9-16.9) g/dL Hct 36.0 L (37.5-50.1) % MCV 102.9 H (83.0-100.0) fL MCH 34.3 H (28.0-33.3) pg MCHC 33.3 (31.6-35.5) g/dL RDW 13.3 (11.5-14.5) % Plt Count 251 (140-400) K/mcL MPV 8.6 L (9.4-12.4) fL Immature Gran % 0.2 (0-4) % Seg Neutrophils % 72.5 % Lymphocytes % 17.2 % Monocytes % 5.3 % Eosinophils % 4.3 % Basophils % 0.5 % Neutrophils # 4.7 (1.6-8.9) K/mcL Lymphocytes # 1.1 (0.6-4.6) K/mcL Monocytes # 0.3 (0.0-1.3) K/mcL Eosinophils # 0.3 (0.0-0.6) K/mcL Basophils # 0.0 (0.0-0.2) K/mcL Sodium 136 (136-145) mEq/L Potassium 4.3 (3.5-5.1) mEq/L Chloride 103 (98-107) mEq/L Carbon Dioxide 29 (23-29) mEq/L BUN 11 (8-23) mg/dL Creatinine 0.85 (0.70-1.30) mg/dL Est GFR ( Amer) > 60 (> 60) Est GFR (Non-Af Amer) > 60 (> 60) BUN/Creatinine Ratio 13 (6-26) Glucose 132 H (70-105) mg/dL Calculated Osmolality 283 (280-300) Lactic Acid (0.5-2.2) mmol/L Calcium 9.0 (8.6-10.3) mg/dL Total Bilirubin 0.6 (0.3-1.0) mg/dL Direct Bilirubin 0.2 (0.0-0.2) mg/dL Indirect Bilirubin 0.4 (0.0-1.2) mg/dL AST 25 (13-39) Units/L ALT 10 (7-52) Units/L Alkaline Phosphatase 88 (34-104) Units/L Serum Total Protein 6.6 (6.4-8.9) g/dL Albumin 3.9 (3.5-5.7) g/dL Globulin 2.7 (2.4-3.5) g/dL Albumin/Globulin Ratio 1.4 (1.1-2.2) Lipase 48 (11-82) Units/L //18 Range/Units 22:54 WBC (4.3-11.1) K/mcL RBC (4.19-5.50) M/mcL Hgb (12.9-16.9) g/dL Hct (37.5-50.1) % MCV (83.0-100.0) fL MCH (28.0-33.3) pg MCHC (31.6-35.5) g/dL RDW (11.5-14.5) % Plt Count (140-400) K/mcL MPV (9.4-12.4) fL Immature Gran % (0-4) % Seg Neutrophils % % Lymphocytes % % Monocytes % % Eosinophils % % Basophils % % Neutrophils # (1.6-8.9) K/mcL Lymphocytes # (0.6-4.6) K/mcL Monocytes # (0.0-1.3) K/mcL Eosinophils # (0.0-0.6) K/mcL Basophils # (0.0-0.2) K/mcL Sodium (136-145) mEq/L Potassium (3.5-5.1) mEq/L Chloride (98-107) mEq/L Carbon Dioxide (23-29) mEq/L BUN (8-23) mg/dL Creatinine (0.70-1.30) mg/dL Est GFR ( Amer) (> 60) Est GFR (Non-Af Amer) (> 60) BUN/Creatinine Ratio (6-26) Glucose (70-105) mg/dL Calculated Osmolality (280-300) Lactic Acid 1.4 (0.5-2.2) mmol/L Calcium (8.6-10.3) mg/dL Total Bilirubin (0.3-1.0) mg/dL Direct Bilirubin (0.0-0.2) mg/dL Indirect Bilirubin (0.0-1.2) mg/dL AST (13-39) Units/L ALT (7-52) Units/L Alkaline Phosphatase (34-104) Units/L Serum Total Protein (6.4-8.9) g/dL Albumin (3.5-5.7) g/dL Globulin (2.4-3.5) g/dL Albumin/Globulin Ratio (1.1-2.2) Lipase (11-82) Units/L - Radiology Data Radiology results reviewed: Yes I reviewed the patient's radiology results. Abdomen/Pelvis CT 12/25/17 19:55 IMPRESSION: 1. Rectal mural thickening. Correlate with clinical evidence of proctitis. 2. Heterogeneity with possible enlargement involving the pancreatic head. Although this could represent pancreatitis, pancreatic neoplasm is also considered. Correlate with laboratory evidence of pancreatitis. Consider further evaluation with a dedicated pancreatic MRI. 3. Small bilateral pleural effusions with adjacent airspace disease, atelectasis versus pneumonia versus edema. 4. 5 mm nodule within the right lower lung. Follow-up recommendations are below. 5. Horseshoe kidney incidentally noted. No hydronephrosis or renal calculi are found. 6. Limited without intravenous contrast. In addition, the patient's arms were at his side while scanning, generating streak artifact. RECOMMENDATIONS: Fleischner Society guidelines for follow-up and management of incidentally detected pulmonary nodules: Single Solid Nodule: Nodule size less than 6 mm In a low-risk patient, no routine follow-up. In a high-risk patient, optional CT at 12 months. - Low risk patients include individuals with minimal or absent history of smoking and other known risk factors. - High risk patients include individuals with a history or smoking or known risk factors. Radiology 2017 http://pubs.rsna.org/doi/full/10.1148/radiol.[email or web address] D/ / Pardeep Miner MD / Pardeep Miner MD Interpreting Provider: Pardeep Miner MD Head CT 12/25/17 19:58 IMPRESSION: 1. No acute intracranial abnormality. 2. Diffuse parenchymal volume loss with moderate chronic white matter microvascular ischemic changes. D/ / Gurinder Lee / Gurinder Lee Interpreting Provider: Gurinder Lee S.B.A.R. - S.B.A.R. Situation: Demographics, MOA Background: Presenting Complaint, Relevant PMH, Meds, & Allergies Assessment: Vital Signs, Course and respsone to treatment, Exam Concerns, Patient/Family Expectation, Pertinant Lab Results, Outstanding Labs Recommendation: Barrier(s) to disposition, Recommendation based on pending studies, treatments, or consults S.B.A.R. Report Given to: Dr. Salamanca
[2017-12-25] MEDS ORDERED: *HR* LORazepam 2 MG/ML VIAL IM ONE (20:08)
[2017-12-25] MEDS ORDERED: Haloperidol Lactate 5 MG/ML VIAL IM ONE (20:08)
[2017-12-25 20:21] LABS: Basophils % 0.5 %; Eosinophils # 0.3 K/mcL (0.0-0.6); Eosinophils % 4.3 %; Immature Granulocytes % 0.2 % (0-4); Lymphocytes # 1.1 K/mcL (0.6-4.6); Lymphocytes % 17.2 %; Mean Corpuscular HGB Conc 33.3 g/dL (31.6-35.5); Mean Corpuscular Hemoglobin 34.3 pg (28.0-33.3); Mean Corpuscular Volume 102.9 fL (83.0-100.0); Mean Platelet Volume 8.6 fL (9.4-12.4); Monocytes # 0.3 K/mcL (0.0-1.3); Monocytes % 5.3 %; Neutrophils # 4.7 K/mcL (1.6-8.9); Platelet Count 251 K/mcL (140-400); Red Cell Distribution Width 13.3 % (11.5-14.5); Segmented Neutrophils % 72.5 %
[2017-12-25 20:34] LABS: Blood Urea Nitrogen 11 mg/dL (8-23); Carbon Dioxide 29 mEq/L (23-29); Chloride 103 mEq/L (98-107); Potassium 4.3 mEq/L (3.5-5.1); Sodium 136 mEq/L (136-145)
[2017-12-25 20:35] LABS: BUN/Creatinine Ratio 13 (6-26); Glucose 132 mg/dL (70-105); Osmolality,Calculated 283 (280-300); eGFR For African Americans > 60 (> 60); eGFR For Non-African Americans > 60 (> 60)
[2017-12-25 23:23] LABS: Albumin 3.9 g/dL (3.5-5.7); Albumin/Globulin Ratio 1.4 (1.1-2.2); Bilirubin,Direct 0.2 mg/dL (0.0-0.2); Bilirubin,Indirect 0.4 mg/dL (0.0-1.2); Bilirubin,Total 0.6 mg/dL (0.3-1.0); Globulin 2.7 g/dL (2.4-3.5); Total Protein 6.6 g/dL (6.4-8.9)
[2017-12-26] MEDS ORDERED: Hydrocortisone Rectal 2.5% CRM 28 GM TUBE RC PRN (00:31)
[2017-12-26] MEDS ORDERED: Naloxone 0.4 MG/ML INJ IVP PRN (09:18)
[2017-12-26] MEDS ORDERED: Acetaminophen 325 MG TABLET PO PRN (09:18)
[2017-12-26] MEDS ORDERED: Dextrose Gel 15 GM/37.5 ML TUBE PO PRN ×2 (09:22)
[2017-12-26] MEDS ORDERED: D5% in Water 1,000 ML IVC PRN (09:22)
[2017-12-26] MEDS: 0.9 % Sodium Chloride 1,000 ML IVC SCH ×2 (10:32→23:36)
[2017-12-26] MEDS ORDERED: *HR* LORazepam 1 MG TABLET PO ONE (12:53)
--- NOTE | 2017-12-26 12:58 | Gastroenterology Consult Note ---
Date of Encounter: 12/27/17 Time of Encounter: 12:00 - Assessment and plan (1) Pancreatic mass Current Visit: Yes Status: Acute Assessment and plan: CT of the abdomen showed Heterogeneity with possible enlargement involving the pancreatic head which could represent pancreatitis or pancreatic neoplasm. Lab values are normal. MRI was normal but due to patient mental status was unable to complete. Will discuss EUS with pt and Dr Velasquez. Will obtain records from [facility] or previous CT abdomen. (2) Hemorrhoid Current Visit: Yes Status: Acute Assessment and plan: has been started on proctosol, would recommend daily fiber, warm soaps and avoid scrubbing/scratching Qualifiers: Hemorrhoid type: unspecified Qualified Code(s): K64.9 - Unspecified hemorrhoids - Time Spent With Patient Total time spent is greater than 50% in coordination of care (as documented) at patient's floor/unit and/or counseling patient: GI History of Present Illness - Data of Consult Patient: new to practice Consult date: 12/26/17 Requesting Physician: Diego Epps - Consult Narrative Reason for consult: pancreatic mass History of present illness: Mr. Pitts is a 67 year old male with a past medical history of cognitive delay , history of hyponatremia. He presented to the ER yesterday with a concern for the patient having rectal itching and also complaints of a new right groin mass. He is slow at answering questions from his baseline cognitive delay, however, the family member that is present states that this is near his baseline. She says over the past few days, the patient has been "picking "at his rectal area. The patient himself denies any pain with defecation, any change in bowel movements, any melena or hematochezia. Denies any chest pain, shortness breath, nausea, vomiting, abdominal pain, diarrhea, or constipation. She does admit that he has stopped eating because he does not want to have a BM and has lost 10 pounds in the past few weeks. Patient also denies any pain in his groin area but does note a possible hernia in the right inguinal region. Family members also concerned of possible hyponatremia. She says that he has been somewhat off-balance recently which is new for him. She states he lives alone and has several family members that help care for him, including her who is Mr Hong's POA. GI was consulted for possible pancreatic mass, [id number] states he had the mass in 2003 and had CTs at [place]. EGD: Colonosopy: NSAIDS:asa 81 mg Anticoagulants: none Past Med Surg Social Fam HX - Past Medical History Medical history: other Psychiatric history: anxiety - Social History Smoking Status: Never smoker Smokeless Tobacco Status: No Alcohol use: none Drug use: none - Family History Mother Living Status: Hx Family Cardiac Disorders: Yes Review of Systems: GI: as per [facility] GENERAL: denies fever or chills EYES: denies yellow discoloration ENT: denies pain with swallowing or difficulty swallowing CARDIO: denies chest pain, palpitations RESP: No Shortness of breath with exertion : denies change in color of urine NEURO: denies any weakness HEME: Denies any bruising MS: denies joint pain, joint swelling or back pain. DERM: denies rash, anal itching PSYCH: Denies history of anxiety or depression - Constitutional Vitals: Temp Pulse Resp BP Pulse Ox 97.7 F 81 16 100/72 98 12/26/17 12:52 12/26/17 12:52 12/26/17 12:52 12/26/17 12:52 12/26/17 12:52 Exam: CONSTITUTIONAL:~alert, no acute distress.~HEAD:~normocephalic, bruising and abraisions noted to right temporal area.~EYES:~no jaundice.~NECK:~no obvious swelling.~HEART:~regular rate and rhythm, no murmurs.~LUNGS:~bilateral good air entry.~ABDOMEN:~non distended, soft, non tender, no masses palpable, no organomegaly.~RECTAL EXAM:~Deferred.~EXTREMITIES:~no clubbing, cyanosis or edema.~SKIN:~no stigmata of chronic liver disease.~NEUROLOGIC:~no obvious focal defect.~~~~ Results - Labs CBC & Chem 7: 12/27/17 04:03 12/27/17 04:03 Labs: Last Result Calcium 9.0 mg/dL (8.6-10.3) 12/25/17 20:03 Entire Visit Hgb 12.0 g/dL (12.9-16.9) L 12/25/17 20:03 Hct 36.0 % (37.5-50.1) L 12/25/17 20:03 Total Bilirubin 0.6 mg/dL (0.3-1.0) 12/25/17 22:54 AST 25 Units/L (13-39) 12/25/17 22:54 ALT 10 Units/L (7-52) 12/25/17 22:54 Lipase 48 Units/L (11-82) 12/25/17 22:54 Consult Discharge Plan - Plan Referrals: Ben Magaña MD [Primary Care Provider] -
[2017-12-26] MEDS: CarBAMazepine XR (12 hr) 100 MG TAB PO SCH (13:06)
[2017-12-26] MEDS: Folic Acid 1 MG TABLET PO SCH (13:06)
[2017-12-26] MEDS: Aspirin Enteric Coated 81 MG Tablet PO SCH (13:06)
[2017-12-26] MEDS: Insulin LISPRO 300 UNITS/3 ML VIAL SQ SCH ×3 (14:39→23:36)
[2017-12-26] MEDS ORDERED: Isovue-370 500 ML INFUS..BTL IV ONE (16:57)
[2017-12-26] MEDS: *HR* Dextrose 50 % in Water (Syg) 50 ML SYRINGE IVP PRN ×2 (17:42→23:00)
[2017-12-26] MEDS: *HR* LORazepam 2 MG/ML VIAL IVP PRN (20:09)
[2017-12-26] MEDS ORDERED: *HR* LORazepam 2 MG/ML VIAL IVP ONE (20:51)
[2017-12-26] MEDS ORDERED: risperiDONE 1 MG TABLET PO SCH (21:00)
--- NOTE | 2017-12-26 22:13 | Internal Med History&Physical ---
Date of Encounter: 12/26/17 Time of Encounter: 10:37 Internal Medicine - H&P: HPI Chief complaint: Rectal Itching, Right Groin Mass Admitted From: Emergency Dept Plans for Post Hospital Care: Home History of present illness: Mr. Pitts is a 67 year old male with PMH of mental retardation who presented to ED overnight with rectal itching and right groin mass. I am unable to obtain any history from patient. He only states to me that he wants to "go home." There is no family in the room at this time. Most of history is obtained form chart review, including ED records, and discussion with floor nurse. Patient was brought to ED by family for concern of new rectal itching and possible right groin mass. He was noted by family to be picking at his rectal area. Patient does not voice confirmation of this. There has been no fever, chills, nausea, vomiting, abdominal pain, or changes in bowel. In the ED , CT abdomen pelvis showed some rectal mural thickening and concern for heterogeneity with possible enlargement involving the pancreatic head concerning for neoplasm vs pancreatitis. CT head showed no acute abnormalities. Labwork was unremarkable. He was given protosol in ED for hemorrhoids vs proctitis. I was asked to admit patient for MRI because he is requiring sedation due to his restlessness and cognitive delay. Anesthesiology and surgery were consulted. I spoke with anesthesiologist today, who stated that they cannot do sedation in the MRI suite. Past Med Surg Social Fam HX - Past Medical History Attestation: No The following information was validated with the patient. Source: unable to obtain (I am unable to obtain PMH, PSH, SH, or FH from patient due to his cognitive delay/mental retardation. All information was obtained from chart review.), old records reviewed Medical history: other (Mental Retardation/Cognitive Delay) Psychiatric history: anxiety - Social History Smoking Status: Never smoker Smokeless Tobacco Status: No Alcohol use: none Drug use: none - Family History Mother Living Status: Hx Family Cardiac Disorders: Yes Internal Medicine - H&P: Meds Aspirin Enteric Coated [Aspirin EC] 81 mg PO DAILY 06/04/17 [History] Folic Acid 1 mg PO DAILY 06/04/17 [History] Simvastatin [Zocor] 10 mg PO HS 06/04/17 [History] metFORMIN [Glucophage] 500 mg PO BIDWM 06/04/17 [History] risperiDONE [Risperdal] 2 mg PO HS 06/04/17 [History] CarBAMazepine [Carbamazepine ER] 200 mg PO DAILY 12/26/17 [History] 3 Allergy/AdvReac Type Severity Reaction Status Date / Time No Known Allergies Allergy Verified 06/04/17 10:58 ROS unobtainable: other (Unable to obtain ROS from patient due to his cognitive delay/mental retardation. He does no answer any of my questions and only states that he wants to "go home.") - Constitutional Vitals: Temp Pulse Resp BP Pulse Ox 97.6 F 67 16 98/65 99 12/26/17 18:57 12/26/17 18:57 12/26/17 18:57 12/26/17 18:57 12/26/17 18:57 General appearance: Present: A&O X 0, pleasant, no acute distress. Absent: cooperative, answers questions appropriately - Head Head exam: Present: atraumatic, normocephalic - Eye Eye exam: Present: EOMI, PERRL. Absent: nystagmus, scleral icterus - ENT ENT exam: Present: mucous membranes moist, normal external ear exam, normal oropharynx - Neck Neck exam general surgery: Present: supple, trachea midline. Absent: lymphadenopathy, tenderness, thyromegaly - Respiratory Respiratory exam: Present: CTAB, rales, rhonchi, wheezes. Absent: accessory muscle use Additional comments: Normal WOB - Cardiovascular Cardiovascular exam: Present: RRR, +S1, +S2. Absent: diastolic murmur, gallop, rubs, systolic murmur Additional comments: No BLE edema - GI/Abdominal GI/Abdominal exam: Present: hypoactive bowel sounds, normal bowel sounds, soft. Absent: distended, hepatomegaly, mass, splenomegaly, tenderness - Rectal Additional comments: Unable to perform due to patient not being cooperative. - Extremities Exam Extremities exam: Present: normal capillary refill. Absent: calf tenderness, cyanotic, joint swelling, pedal edema, tenderness - Neurological Exam Neurological exam: Present: alert, normal gait, no focal deficits. Absent: oriented X3, facial droop, speech deficit Additional comments: Unable to fully perform due to patient condition. - Psychiatric Psychiatric exam: Present: normal affect, normal mood. Absent: agitated, anxious, depressed - Skin Skin exam: Present: dry, intact, warm. Absent: cyanosis, rash Internal Med - H&P Results - Labs CBC & Chem 7: 12/27/17 04:03 12/27/17 04:03 - Assessment and plan (1) Pancreatic mass Current Visit: Yes Status: Acute Assessment and plan: Admit for observation for further workup. Concern for malignancy. Unable to get MRI due to restlessness and agitation. GI consulted; appreciate input. Consider ultrasound with biopsy. Will await GI recommendations. (2) Hemorrhoid Current Visit: Yes Status: Acute Assessment and plan: Continue proctosol IL PRN. Qualifiers: Hemorrhoid type: unspecified Qualified Code(s): K64.9 - Unspecified hemorrhoids (3) Proctitis Current Visit: Yes Status: Acute Assessment and plan: Continue proctosol IL PRN. (4) Hx of seizure disorder Current Visit: Yes Status: Chronic Assessment and plan: Continue home medications. (5) Diabetes Current Visit: Yes Status: Chronic Assessment and plan: Start accuchecks and low dose SSI QID AC/HS. Qualifiers: Diabetes mellitus type: type 2 Diabetes mellitus terminal make up operator insulin use: without senior living use Diabetes mellitus complication status: without complication Qualified Code(s): E11.9 - Type 2 diabetes mellitus without complications (6) Mental retardation Current Visit: Yes Status: Chronic Assessment and plan: Continue home medications. Start IV ativan 1 mg Q6H PRN agitation. (7) DVT prophylaxis Current Visit: Yes Status: Acute Assessment and plan: Start SCDs. - Time Spent With Patient Total time spent is greater than 50% in coordination of care (as documented) at patient's floor/unit and/or counseling patient: 25 - 35 minutes
[2017-12-27 04:47] LABS: Basophils % 0.6 %; Eosinophils # 0.3 K/mcL (0.0-0.6); Hematocrit 34.9 % (37.5-50.1); Hemoglobin 11.7 g/dL (12.9-16.9); Immature Granulocytes % 0.2 % (0-4); Lymphocytes % 20.9 %; Mean Corpuscular HGB Conc 33.5 g/dL (31.6-35.5); Mean Corpuscular Hemoglobin 34.3 pg (28.0-33.3); Mean Corpuscular Volume 102.3 fL (83.0-100.0); Mean Platelet Volume 8.7 fL (9.4-12.4); Monocytes # 0.4 K/mcL (0.0-1.3); Monocytes % 8.1 %; Neutrophils # 3.1 K/mcL (1.6-8.9); Nucleated Red Blood Cells 0.4 /100 WBC (0); Platelet Count 237 K/mcL (140-400); Red Blood Count 3.41 M/mcL (4.19-5.50); Red Cell Distribution Width 13.2 % (11.5-14.5); Segmented Neutrophils % 64.2 %
[2017-12-27 05:05] LABS: BUN/Creatinine Ratio 11 (6-26); Blood Urea Nitrogen 9 mg/dL (8-23); Carbon Dioxide 29 mEq/L (23-29); Chloride 103 mEq/L (98-107); Glucose 94 mg/dL (70-105); Osmolality,Calculated 280 (280-300); Potassium 3.5 mEq/L (3.5-5.1); Sodium 136 mEq/L (136-145); eGFR For African Americans > 60 (> 60); eGFR For Non-African Americans > 60 (> 60)
[2017-12-27] MEDS: Insulin LISPRO 300 UNITS/3 ML VIAL SQ SCH (05:53)
[2017-12-27] MEDS ORDERED: diazePAM 10 MG/2 ML SYRINGE IVP ONE (08:17)
--- NOTE | 2017-12-27 08:22 | Internal Med Progress Note ---
Date of Encounter: 12/27/17 Time of Encounter: 08:20 - Assessment and plan (1) Pancreatic mass Current Visit: Yes Status: Acute Assessment and plan: GI is consulted. We will try to repeat an MRCP. Give 5 mg of Valium (2) Mental retardation Current Visit: Yes Status: Chronic Assessment and plan: Chronic. Supportive care. Remove restraints. (3) Diabetes Current Visit: Yes Status: Chronic Assessment and plan: Continue Accu-Cheks. Continue insulin sliding scale. Qualifiers: Diabetes mellitus type: type 2 Diabetes mellitus [facility] insulin use: without termite inspector use Diabetes mellitus complication status: without complication Qualified Code(s): E11.9 - Type 2 diabetes mellitus without complications (4) Hx of seizure disorder Current Visit: Yes Status: Chronic Assessment and plan: Continue home medications. (5) Proctitis Current Visit: Yes Status: Acute Assessment and plan: Started on hydrocortisone rectally when necessary. (6) Hemorrhoid Current Visit: Yes Status: Acute Assessment and plan: Continue hydrocortisone rectally when necessary.. Qualifiers: Hemorrhoid type: unspecified Qualified Code(s): K64.9 - Unspecified hemorrhoids (7) DVT prophylaxis Current Visit: Yes Status: Acute Assessment and plan: Heparin subcutaneous - Time Spent With Patient Total time spent is greater than 50% in coordination of care (as documented) at patient's floor/unit and/or counseling patient: - Subjective Interval history: She was seen and examined. The patient could not lay still for the MRCP. He had to be canceled. Otherwise no acute events. Afebrile. Has some abdominal discomfort. Apparently admitted with some rectal itching and found to have a possible mass of the pancreas. The patient has some cognitive dysfunction. - Constitutional Vitals: Temp Pulse Resp BP Pulse Ox 98.2 F 64 18 104/65 97 12/27/17 07:20 12/27/17 07:20 12/27/17 07:20 12/27/17 07:20 12/27/17 07:20 Exam: InGEN: NAD CVS: RRR. S1, S2, No m/r/g RESP: CTAB ABD: Soft, NT, ND, +BS EXT: No edema. 2+ DP. No rashes NEURO: Nonfocalm. Internal Medicine: Result - Labs CBC & Chem 7: 12/27/17 04:03 12/27/17 04:03 Labs: Short CBC 12/27/17 Range/Units 04:03 WBC 4.8 (4.3-11.1) K/mcL Hgb 11.7 L (12.9-16.9) g/dL Hct 34.9 L (37.5-50.1) % Plt Count 237 (140-400) K/mcL Neutrophils # 3.1 (1.6-8.9) K/mcL BMP 12/27/17 04:03 Sodium 136 Potassium 3.5 Chloride 103 Carbon Dioxide 29 BUN 9 Creatinine 0.81 Glucose 94 Calcium 9.0 Consult Discharge Plan - Plan Referrals: Ben Magaña MD [Primary Care Provider] -
[2017-12-27] MEDS: *HR* LORazepam 2 MG/ML VIAL IVP PRN (09:00)
[2017-12-27] MEDS: CarBAMazepine XR (12 hr) 100 MG TAB PO SCH (09:16)
[2017-12-27] MEDS: Aspirin Enteric Coated 81 MG Tablet PO SCH (09:16)
[2017-12-27] MEDS: Folic Acid 1 MG TABLET PO SCH (09:16)
--- NOTE | 2017-12-27 09:25 | Gastroenterology Progress Note ---
Date of Encounter: 12/27/17 Time of Encounter: 09:15 - Assessment and plan (1) Pancreatic mass Current Visit: Yes Status: Acute Assessment and plan: CT of the abdomen showed Heterogeneity with possible enlargement involving the pancreatic head which could represent pancreatitis or pancreatic neoplasm. Lab values are normal. MRI was normal but due to patient mental status was unable to complete. Will obtain records from [facility] or previous CT abdomen. Attempting MRI with sedation. Pts brother is POA, needs to decide if they want to persue with workup as the patient is very agitated and wanting to go home. (2) Hemorrhoid Current Visit: Yes Status: Acute Assessment and plan: has been started on proctosol, would recommend daily fiber, warm soaps and avoid scrubbing/scratching Qualifiers: Hemorrhoid type: unspecified Qualified Code(s): K64.9 - Unspecified hemorrhoids - Time Spent With Patient Total time spent is greater than 50% in coordination of care (as documented) at patient's floor/unit and/or counseling patient: - Subjective Interval history: CT findings discussed with Dr Velasquez. Pt has been unable to have MRI or repeat CT due to agitation. This am pt has been in restraints and remains very agitated. - Constitutional Vitals: Temp Pulse Resp BP Pulse Ox 98.2 F 64 18 104/65 97 12/27/17 07:20 12/27/17 07:20 12/27/17 07:20 12/27/17 07:20 12/27/17 07:20 Exam: CONSTITUTIONAL:~alert, ngitated.~~SKIN:~no stigmata of chronic liver disease.~ NEUROLOGIC:~no obvious focal defect.~~~~ Results - Labs CBC & Chem 7: 12/27/17 04:03 12/27/17 04:03 Labs: Last Result Calcium 9.0 mg/dL (8.6-10.3) 12/27/17 04:03 Entire Visit Hgb 11.7 g/dL (12.9-16.9) L 12/27/17 04:03 Hct 34.9 % (37.5-50.1) L 12/27/17 04:03 Total Bilirubin 0.6 mg/dL (0.3-1.0) 12/25/17 22:54 AST 25 Units/L (13-39) 12/25/17 22:54 ALT 10 Units/L (7-52) 12/25/17 22:54 Lipase 48 Units/L (11-82) 12/25/17 22:54 Consult Discharge Plan - Plan Referrals: Ben Magaña MD [Primary Care Provider] -
[2017-12-27 11:32] VITALS: BP 107/70
--- NOTE | 2017-12-27 11:48 | Discharge Summary ---
- NOTES TO OUTPATIENT PROVIDER Notes to Outpatient Provider: Patient will need to see GI for EUS due to abnormal pancreas findings on CT. Few nodules noted on CTs. Need CT follow up in 3-6 months Orders not resulted at time of discharge: Pending orders 12/27/17 08:17 MR abdomen wo/w con [MR] Routine 12/28/17 04:00 BMP [Basic Metabolic Panel] AM 0400 Complete Blood Count [HEME] AM 0400 Magnesium AM 0400 Date of Encounter: 12/27/17 Time of Encounter: 11:46 - Discharge Diagnosis (1) Pancreatic mass Priority: Primary Status: Acute (2) Mental retardation Priority: Secondary Status: Chronic (3) Diabetes Priority: Secondary Status: Chronic Qualifiers: Diabetes mellitus type: type 2 Diabetes mellitus [facility] insulin use: without termite treater helper use Diabetes mellitus complication status: without complication Qualified Code(s): E11.9 - Type 2 diabetes mellitus without complications (4) Hx of seizure disorder Priority: Secondary Status: Chronic (5) Proctitis Priority: Primary Status: Acute (6) Hemorrhoid Priority: Primary Status: Acute Qualifiers: Hemorrhoid type: unspecified Qualified Code(s): K64.9 - Unspecified hemorrhoids Hospital course: Mr. Pitts is a 67 year old male with PMH of mental retardation who presented to ED overnight with rectal itching. He was unable to give history due to mental retardation and we had issues with keeping him still. A CT abd/pelvis came back concerning for a pancreatic head heterogeneity with possible enlargement. There was 5 mm nodule in the righ lower lobe with follow up recommended. Rectal mural thickening was mentioned as well. The patient was admitted with a GI consult. An MRCP was recommended however could not be done as the patient would not stay calm forte. CT abdomen with contrast was repeated which did not mention the findings were seen on the previous CT. It did mention mild dilation of the main pancreatic duct potentially related to moderate parenchymal atrophy. No findings of superimposed acute pancreatitis, and no focal pancreatic mass. GI were okay with him being discharged given his normal labs including pancreatic labs and they were going to follow-up with them as an outpatient for possible EUS. He was discharged on 12/27. - Time Spent with Patient Total time spent providing and/or coordinating discharge services: Greater than 30 minutes - Discharge Medications Prescriptions: Hydrocortisone Rectal CRM [Proctosol-Hc] 1 appl RC TID PRN #5 tube PRN Reason: Itching Home Medications: Aspirin Enteric Coated [Aspirin EC] 81 mg PO DAILY 06/04/17 [History] Folic Acid 1 mg PO DAILY 06/04/17 [History] Simvastatin [Zocor] 10 mg PO HS 06/04/17 [History] metFORMIN [Glucophage] 500 mg PO BIDWM 06/04/17 [History] risperiDONE [Risperdal] 2 mg PO HS 06/04/17 [History] CarBAMazepine [Carbamazepine ER] 200 mg PO DAILY 12/26/17 [History] Hydrocortisone Rectal CRM [Proctosol-Hc] 1 appl RC TID PRN #5 tube 12/27/17 [Rx] Allergies/Adverse Reactions: 3 Allergy/AdvReac Type Severity Reaction Status Date / Time No Known Allergies Allergy Verified 06/04/17 10:58 Date of admission: 12/26/17 00:50 Primary care physician: Ben Magaña MD Consults: 12/26/17 11:18 Consult to Gastroenterology [CONS] Routine Consulting Provider: Gastro[facility] Reason for Consult: Pancreatic Mass Call Completed: Yes - Constitutional Vitals: Temp Pulse Resp BP Pulse Ox 98.2 F 65 16 107/70 97 12/27/17 11:29 12/27/17 11:29 12/27/17 11:29 12/27/17 11:29 12/27/17 11:29 General appearance: Present: A&O X 0, pleasant, no acute distress. Absent: cooperative, answers questions appropriately Exam: GEN: NAD CVS: RRR. S1, S2, No m/r/g RESP: CTAB ABD: Soft, NT, ND, +BS EXT: No edema. 2+ DP. No rashes NEURO: Nonfocal - Patient Status Disposition: Home, Self-Care Condition: Good Overall status at discharge: patient is progressing back to baseline - Discharge Instructions Follow Up With: Ben Magaña MD [Primary Care Provider] - 01/04/18 11:00 am (Please follow up as schedule...) Efren Velasquze MD [Partnered Physician] - 01/15/18 3:20 pm (2 weeks.. Patient will follow up with Dr. Morley) - Diet and Activity Activity: increase activity as tolerated Diet: diabetic diet
== END 2017-12-27 12:26 | disposition home or self-care (01) ==
LOC: EMEROO 16:40 → 2ANU 16:40
PROVIDERS: ADMIT Family Medicine; ATTEND Internal Medicine